=== PATIENT | male | born 1980 | race Caucasian/White ===

== ENCOUNTER 2017-12-10 09:29 | Emergency (ER) | payer OTHER ==
[~2017-12-10] VITALS: Ht 190.5 cm; Wt 90.0 kg
[2017-12-10 09:33] VITALS: BP 155/88; PULSE 79; RESP 20; TEMP 97.7; O2SAT 79; O2SAT 99
[2017-12-10] MEDS ORDERED: SODIUM CHLOR 0.9% 1000 ML INJ 1,000 ML IV SCH (10:11)
[2017-12-10] MEDS ORDERED: SODIUM CHLORIDE 0.9% FLUSH 10 ML FLUSH IV FLUSH PRN (10:15)
[2017-12-10] MEDS ORDERED: ONDANSETRON HCL 4 MG/2 ML VIAL IVP ONE (10:15)
[2017-12-10] MEDS ORDERED: KETOROLAC TROMETHAMINE 30 MG/ML (IVP) VIAL IV PUSH ONE (10:15)
[2017-12-10 10:59] LABS: AUTOMATED NEUTROPHIL # 15.6 TH/MM3 (1.8-7.7); BASOPHIL % 0.3 % (0.0-2.0); EOSINOPHIL % 0.1 % (0.0-4.0); HEMATOCRIT 44.5 % (39.0-51.0); LYMPH % 7.2 % (9.0-44.0); LYMPHOCYTE # 1.3 TH/MM3 (1.0-4.8); MEAN CELL VOLUME 80.5 FL (80.0-100.0); MEAN CORPUSCULAR HEMOGLOBIN 27.2 PG (27.0-34.0); MEAN CORPUSCULAR HGB CONC 33.8 % (32.0-36.0); MEAN PLATELET VOLUME 7.8 FL (7.0-11.0); MONO % 6.3 % (0.0-8.0); MONOCYTE # 1.1 TH/MM3 (0-0.9); NEUT % 86.1 % (16.0-70.0); PLATELET COUNT 363 TH/MM3 (150-450); RED BLOOD COUNT 5.52 MIL/MM3 (4.50-5.90); RED CELL DISTRIBUTION WIDTH 13.9 % (11.6-17.2); WHITE BLOOD COUNT 18.1 TH/MM3 (4.0-11.0)
--- NOTE | 2017-12-10 11:07 | RADRPT ---
EXAM DATE/TIME: 12/10/2017 10:44 [place] COMPARISON: No previous studies available for comparison. INDICATIONS : Right lower quadrant pain ORAL CONTRAST: No oral contrast ingested. RADIATION DOSE: 7.53 CTDIvol (mGy) MEDICAL HISTORY : None SURGICAL HISTORY : None. ENCOUNTER: Initial ACUITY: 1 day PAIN SCALE: 8/10 LOCATION: Right lower quadrant TECHNIQUE: Volumetric scanning of the abdomen and pelvis was performed. Using automated exposure control and ad justment of the mA and/or kV according to patient size, radiation dose was kept as low as reasonably achievable to obtain optimal diagnostic quality images. DICOM format image data is available electro nically for review and comparison. FINDINGS: The limited portion of the lung base visualized is clear. The appearance of the liver, spleen, pancreas and adrenal glands is within normal limits. Right kidney/ureter: There is mild prominence of the collecting system on the right. There is a 1 mm nonobstructing stone seen within the collecting system. The proximal ureter is dilated. There is a 2-3 mm stone seen in it s mid segment. The more distal portions of right ureter are unremarkable appearance. Left kidney/ureter: The left kidney is normal in size. There is no hydronephrosis. There is a single nonobstructing 2 mm stone within the collecting system. The left ureter is unremarkable in appearance throughout its cour se. Prostate: The prostate is normal in size. There is a single calcification within the prostate. The visualized loops of small and large bowel are unremarkable. There is no free air or free fluid. The abdominal aorta is normal in caliber. There is no retroperitoneal adenopathy. There is no free fluid within the pelvis no iliac or inguinal adenopathy is seen. The visualized bony structures are intact. CONCLUSION: 1. There is a 3 mm stone in the midportion of the right ureter. There are mild postobstructive change s within the right kidney. There is also a 2 mm nonobstructing stone seen within the collecting syste m of the right kidney as well. 2. There is a 2 mm nonobstructing stone seen within the collecting system of the left kidney. Landon Mccray MD on December 10, 2017 at 11:02 Board Certified Radiologist. This report was verified electronically.
[2017-12-10 11:15] LABS: ALBUMIN 4.6 GM/DL (3.4-5.0); AST (GOT) 13 U/L (15-37); BICARBONATE 26.7 MEQ/L (21.0-32.0); BLOOD UREA NITROGEN 14 MG/DL (7-18); CALCIUM 9.4 MG/DL (8.5-10.1); CHLORIDE 107 MEQ/L (98-107); GLOMERULAR FILTRATION RATE 67 ML/MIN (>89); GLUCOSE,RANDOM 127 MG/DL (74-106); SODIUM (NA) 141 MEQ/L (136-145)
[2017-12-10 11:16] LABS: ALT (GPT) 24 U/L (12-78)
[2017-12-10 11:18] LABS: ALKALINE PHOSPHATASE 81 U/L (45-117); TOTAL BILIRUBIN ADULT 0.4 MG/DL (0.2-1.0); TOTAL PROTEIN 8.3 GM/DL (6.4-8.2)
[2017-12-10 12:00] VITALS: O2SAT 98
[2017-12-10] MEDS ORDERED: TAMS5CAP PO (12:23)
[2017-12-10] MEDS ORDERED: ZOFR4TAB3 SL (12:23)
[2017-12-10] MEDS ORDERED: NORC5TAB PO (12:23)
--- NOTE | 2017-12-10 12:23 | PD ---
HPI Chief Complaint: GI Complaint Time Seen by Provider: 10:07 Travel History International Travel<30 days: No Contact w/Intl Traveler<30days: No Traveled to known affect area: No History of Present Illness HPI Patient is a 37-year-old male who comes in complaining of right sided abdominal pain that he says started last night and has been getting worse. Says the pain is coming and going and is a stabbing pain. He does occasionally have pain around to his back. He says he has had 2 episodes of vomiting. He denies fever. He has not taken anything for his symptoms. He has history of ulcerative colitis and is on an immune modulator. He had an appendectomy a few years ago. He says he has had some decreased urinary output, but has not had pain with urination. Severity is mild to moderate. PFSH Past Medical History Cardiovascular Problems: No COPD: No Diabetes: No Social History Tobacco Use: No Allergies-Medications (Allergen,Severity, Reaction): Coded Allergies: No Known Allergies (Unverified , 12/10/17) Reported Meds & Prescriptions Reported Meds & Active Scripts Active Zofran Odt (Ondansetron Odt) 4 Mg Tab 4 Mg SL Q6HR PRN [place] (Hydrocodone-Acetaminophen) 5 Mg-325 Mg Tab 1 Tab PO Q6H PRN Flomax (Tamsulosin HCl) 0.4 Mg Cap 0.4 Mg PO HS Review of Systems Except as stated in HPI: all other systems reviewed are Neg General / Constitutional: No: Fever, Chills HENT: No: Headaches, Lightheadedness Cardiovascular: No: Chest Pain or Discomfort Respiratory: No: Shortness of Breath Gastrointestinal: Positive: Nausea, Vomiting, Abdominal Pain Genitourinary: Positive: Decreased Urinary Output Skin: No Rash, No Change in Pigmentation Neurologic: No: Weakness, Dizziness Physical Exam Narrative GENERAL: Awake and alert, in no acute distress. SKIN: Focused skin assessment warm/dry. No wounds or signs of infection. HEAD: Atraumatic. Normocephalic. EYES: Pupils equal and round. No scleral icterus. ENT: Mucous membranes pink and moist. NECK: Trachea midline. No JVD. CARDIOVASCULAR: Regular rate and rhythm. No murmur appreciated. RESPIRATORY: No accessory muscle use. Clear to auscultation. Breath sounds equal bilaterally. GASTROINTESTINAL: Abdomen soft, non-tender, nondistended. Right CVA tenderness. MUSCULOSKELETAL: No obvious deformities. No clubbing. No cyanosis. No edema. NEUROLOGICAL: Awake and alert. No obvious cranial nerve deficits. Motor grossly within normal limits. Normal speech. PSYCHIATRIC: Appropriate mood and affect; insight and judgment normal. Data Data Last Documented VS Vital Signs Date Time Temp Pulse Resp B/P (MAP) Pulse Ox O2 Delivery O2 Flow Rate FiO2 12/10/17 12:00 98 Room Air 12/10/17 09:33 97.7 79 20 155/88 (110) Orders Orders Complete Blood Count With Diff (12/10/17 10:11) Comprehensive Metabolic Panel (12/10/17 10:11) Urinalysis - C+S If Indicated (12/10/17 10:11) Ct Abd/Pel W/O Iv Contrast (12/10/17 10:11) Iv Access Insert/Monitor (12/10/17 10:11) Ecg Monitoring (12/10/17 10:11) Oximetry (12/10/17 10:11) Ondansetron Inj (Zofran Inj) (12/10/17 10:15) Sodium Chlor 0.9% 1000 Ml Inj (Ns 1000 M (12/10/17 10:11) Sodium Chloride 0.9% Flush (Ns Flush) (12/10/17 10:15) Ketorolac Inj (Toradol Inj) (12/10/17 10:15) Acetamin-Hydrocod 325-5 Mg ([place] 5-325 (12/10/17 13:45) Ed Discharge Order (12/10/17 13:41) Labs Laboratory Tests Test 12/10/17 10:25 12/10/17 12:25 White Blood Count 18.1 TH/MM3 Red Blood Count 5.52 MIL/MM3 Hemoglobin 15.0 GM/DL Hematocrit 44.5 % Mean Corpuscular Volume 80.5 FL Mean Corpuscular Hemoglobin 27.2 PG Mean Corpuscular Hemoglobin Concent 33.8 % Red Cell Distribution Width 13.9 % Platelet Count 363 TH/MM3 Mean Platelet Volume 7.8 FL Neutrophils (%) (Auto) 86.1 % Lymphocytes (%) (Auto) 7.2 % Monocytes (%) (Auto) 6.3 % Eosinophils (%) (Auto) 0.1 % Basophils (%) (Auto) 0.3 % Neutrophils # (Auto) 15.6 TH/MM3 Lymphocytes # (Auto) 1.3 TH/MM3 Monocytes # (Auto) 1.1 TH/MM3 Eosinophils # (Auto) 0.0 TH/MM3 Basophils # (Auto) 0.0 TH/MM3 CBC Comment DIFF FINAL Differential Comment Blood Urea Nitrogen 14 MG/DL Creatinine 1.20 MG/DL Random Glucose 127 MG/DL Total Protein 8.3 GM/DL Albumin 4.6 GM/DL Calcium Level 9.4 MG/DL Alkaline Phosphatase 81 U/L Aspartate Amino Transf (AST/SGOT) 13 U/L Alanine Aminotransferase (ALT/SGPT) 24 U/L Total Bilirubin 0.4 MG/DL Sodium Level 141 MEQ/L Potassium Level 4.0 MEQ/L Chloride Level 107 MEQ/L Carbon Dioxide Level 26.7 MEQ/L Anion Gap 7 MEQ/L Estimat Glomerular Filtration Rate 67 ML/MIN Urine Color YELLOW Urine Turbidity HAZY Urine pH 5.5 Urine Specific [place] 1.022 Urine Protein TRACE mg/dL Urine Glucose (UA) NEG mg/dL Urine Ketones NEG mg/dL Urine Occult Blood SMALL Urine Nitrite NEG Urine Bilirubin NEG Urine Urobilinogen LESS THAN 2.0 MG/DL Urine Leukocyte Esterase NEG Urine RBC 37 /hpf Urine WBC 3 /hpf Urine Hyaline Casts 7 /lpf Urine Mucus MANY /lpf Microscopic Urinalysis Comment CULT NOT INDICATED MDM Medical Decision Making Medical Screen Exam Complete: Yes Emergency Medical Condition: Yes Differential Diagnosis UTI versus renal stone versus pyelonephritis versus colitis versus diverticulitis Narrative Course Patient is a 37-year-old male comes in complaining of right lower quadrant abdominal pain. Exam shows right CVA tenderness. I have established, labs sent. Labs show an elevated white blood cell count. I discussed this with the patient. He says sometimes this happens with his ulcerative colitis. Creatinine is within normal limits. CT abdomen and pelvis performed shows a 3 mm stone. Last 24 hours Impressions Abdomen/Pelvis CT 12/10/17 1011 Signed Impressions: Service Date/Time: Sunday, December 10, 2017 10:44 - CONCLUSION: 1. There is a 3 mm stone in the midportion of the right ureter. There are mild postobstructive changes within the right kidney. There is also a 2 mm nonobstructing stone seen within the collecting system of the right kidney as well. 2. There is a 2 mm nonobstructing stone seen within the collecting system of the left kidney. Landon Mccray MD Patient's pain controlled with Toradol and fluids. He will be discharged with prescriptions for pain medicine, Flomax. Advised follow-up with urology. Advised to increase his fluid intake. Advised to return to the ED as needed for any worsening symptoms. Diagnosis Primary Impression: Renal stone Referrals: Jesús Godwin MD call for appointment Patient Instructions: General Instructions, Kidney Stones (ED) Additional Instructions: Drink plenty of water. Take pain medicine as needed. Follow-up with urology. Return to the ED as needed for any worsening symptoms. Scripts Ondansetron Odt (Zofran Odt) 4 Mg Tab 4 MG SL Q6HR Y for Nausea/Vomiting, #12 TAB 0 Refills Prov: Rosaura Louise MD 12/10/17 Hydrocodone-Acetaminophen ([place]) 5 Mg-325 Mg Tab 1 TAB PO Q6H Y for PAIN, #10 TAB 0 Refills Prov: Rosaura Louise MD 12/10/17 Tamsulosin (Flomax) 0.4 Mg Cap 0.4 MG PO HS for Manage Prostate Problems, #7 CAP 0 Refills Prov: Rosaura Louise MD 12/10/17 Disposition: 01 DISCHARGE HOME Condition: Stable Rosaura Louise MD Dec 10, 2017 12:23
[2017-12-10 13:20] LABS: BILIRUBIN, URINE NEG (NEG); BLOOD, URINE SMALL (NEG); GLUCOSE,URINE NEG (NEG); HYALINE CAST, URINE 7 /lpf (RARE); KETONE, URINE NEG (NEG); MUCUS URINE MANY /lpf (OCC); NITRITE,URINE NEG (NEG); PH, URINE 5.5 (5.0-8.5); URINE COLOR YELLOW (YELLW/STRAW); URINE LEUKOCYTE ESTERASE NEG (NEG)
[2017-12-10] MEDS ORDERED: ACETAMINOPHEN/HYDROcodone 325 MG/5 MG TAB PO ONE (13:45)
== END 2017-12-10 14:09 | disposition home or self-care (01) ==
LOC: NEPD 09:29
DX: N20.0 Calculus of kidney (principal)
CPT/HCPCS: 74176; 80053; 81001; 85025; 96361; 96374; 96375; 99284; J1885; J2405; J7030

== ENCOUNTER 2017-12-13 12:05 | Emergency (ER) | payer OTHER ==
[~2017-12-13 12:05] MED LIST: NORC5TAB PO; TAMS5CAP PO; ZOFR4TAB3 SL
[2017-12-13 12:38] VITALS: BP 136/75; PULSE 81; RESP 16; TEMP 97.7; O2SAT 99
== END 2017-12-13 14:53 | disposition left against medical advice (07) ==
LOC: NED 12:05
DX: R10.9 Unspecified abdominal pain (principal); Z53.21 Procedure and treatment not carried out due to patient leaving prior to being seen by health care provider
CPT/HCPCS: 99281